=== PATIENT | male | born 1970 | race Caucasian/White ===

== ENCOUNTER 2018-04-28 23:13 | Emergency (ER) | payer OTHER ==
[2018-04-29 02:26] LABS: ADD MAN DIFF? NO
[2018-04-29 02:27] LABS: WHITE BLOOD COUNT 14.8 10^3/ul (4.8-10.8)
[2018-04-29 02:27] LABS: BASOPHIL # 0.1 10^3/ul (0.0-0.1); BASOPHILS % 0.5 % (0.0-2.0); EOSINOPHILS # 0.2 10^3/ul (0.0-0.5); EOSINOPHILS % 1.1 % (0.0-7.0); HEMATOCRIT 49.4 % (42.0-52.0); HEMOGLOBIN 16.6 g/dl (14.0-18.0); LYMPHOCYTES # 2.5 10^3/ul (0.8-2.9); LYMPHOCYTES % 16.6 % (15.0-51.0); MEAN CORPUSCULAR HEMOGLOBIN 29.6 pg (29.0-33.0); MEAN CORPUSCULAR HGB CONC 33.6 g/dl (32.0-37.0); MEAN CORPUSCULAR VOLUME 88.2 fl (82.0-101.0); MONOCYTES % 6.6 % (0.0-11.0); NEUTROPHIL # 11.1 10^3/ul (1.6-7.5); NEUTROPHILS % 74.7 % (39.0-77.0); PLATELET COUNT 327 10^3/UL (140-415)
[2018-04-29] MEDS: ASPIRIN 81 MG TAB PO (02:30)
[2018-04-29] MEDS: NITROGLYCERIN (SL) 0.4 MG TAB SL (02:30)
[2018-04-29] MEDS: NITROGLYCERIN 2% 1 GM OINT PKT TD (02:31)
[2018-04-29 02:47] LABS: ANION GAP 12 (5-13); BLOOD UREA NITROGEN 14 mg/dl (7-20); CALCIUM 10.1 mg/dl (8.4-10.2); CARBON DIOXIDE 31 mmol/L (21-31); CHLORIDE 96 mmol/L (97-110); CREATININE 0.83 mg/dl (0.61-1.24); Estimated GFR > 60 mL/min (>60); POTASSIUM 4.5 mmol/L (3.5-5.1); SODIUM 139 mmol/L (135-144)
[2018-04-29 02:48] LABS: CREATINE KINASE 175 IU/L (23-200)
[2018-04-29 02:49] LABS: GLUCOSE 418 mg/dl (70-220)
[2018-04-29 03:01] LABS: CK INDEX 3.1
[2018-04-29 03:11] LABS: CK-MB 5.36 ng/ml (0.0-2.4); TROPONIN-I 0.293 ng/ml (0.000-0.120); TROPONIN-I 0.301 ng/ml (0.000-0.120)
[2018-04-29] MEDS: ACETAMINOPHEN 325 MG TAB PO (04:09)
[2018-04-29] MEDS: morphine 4 MG/ML VIAL IV (05:14)
[2018-04-29] MEDS: ONDANSETRON 4 MG INJ IV (05:14)
[2018-04-29] MEDS: ENOXAPARIN 100 MG/ML SYG SC (06:10)
[2018-04-29] MEDS: METOPROLOL 25 MG TAB PO (06:54)
[2018-04-29] MEDS: INSULIN REGULAR, HUMAN 100 UNIT/1 ML 3ML VIAL SC (09:04)
== END 2018-04-29 10:17 | disposition short-term general hospital (02) ==
LOC: E/R 23:13
DX: I21.4 Non-ST elevation (NSTEMI) myocardial infarction (principal); I10 Essential (primary) hypertension; E11.9 Type 2 diabetes mellitus without complications; F17.210 Nicotine dependence, cigarettes, uncomplicated
CPT/HCPCS: 36415; 71045; 80048; 82550; 82553; 82962; 84484; 85025; 93005; 96372; 96374; 96375; 99285-25